=== PATIENT | male | born 2000 | race Caucasian/White ===

== ENCOUNTER 2020-11-15 21:55 | Emergency (ER) | payer BC, OTHER ==
[~2020-11-15] VITALS: Ht 185.4 cm; Wt 87.3 kg
[2020-11-15 21:57] VITALS: BP 126/68
[2020-11-15] MEDS ORDERED: LIDOCAINE-MPF 1%, 5ML ONE (22:08)
--- NOTE | 2020-11-15 22:12 | NUR ---
I&D SUPPLIES SET UP AT BEDSIDE PER LIYAH REQUEST. PT RESTING ON JOVAN WOLF
[2020-11-15] MEDS ORDERED: LIDOCAINE-MPF 1%, 5ML INFIL ONE (22:30)
--- NOTE | 2020-11-15 23:27 | NUR ---
Patient/Caregiver given discharge instructions and they have confirmed that they understand the instructions. Patient ambulatory with steady gait.
== END 2020-11-15 23:28 | disposition home or self-care (01) ==
LOC: ED 23:15
DX: L05.01 Pilonidal cyst with abscess (principal)
CPT/HCPCS: 10080; 99283